=== PATIENT | female | born 1995 | race American Indian/Alaskan Native ===

== ENCOUNTER 2018-09-25 11:33 | Emergency (ER) | payer MEDICAID ==
[2018-09-25 11:41] VITALS: BMI 38.7
[2018-09-25 11:45] VITALS: RESP 18
[2018-09-25] MEDS ORDERED: Sodium Chloride 0.9% 1,000 ML IV STA (11:49)
--- NOTE | 2018-09-25 12:35 | ED PDOC ---
Arrival/HPI - General Chief Complaint: Back Pain Time Seen by Provider: 09/25/18 11:36 Historian: Patient - History of Present Illness Narrative History of Present Illness (Text): 09/25/18 12:31 23-year-old female presents today with right sided flank pain since yesterday. Patient denies abdominal pain. No nausea or vomiting. She denies dizziness or weakness. Patient denies fevers or chills. Denies dysuria or urinary frequency. Patient states she has right sided back pain going into the buttocks yesterday. Patient states she took a naproxen yesterday which improved the pain into the buttocks but she still had the pain in the right flank. Patient states her last menstrual period was August 24. Patient denies vaginal bleeding or vaginal discharge. Patient denies chest pain or shortness of breath. No medications were taken for pain at home today. Time/Duration: Other (1 day) Symptom Onset: Gradual Symptom Course: Improving Quality: Aching Severity Level: Moderate Past Medical History - Provider Review Nursing Documentation Reviewed: Yes - Travel History Have you recently traveled outside [place] w/in the past 3 mons?: No - Infectious Disease Hx of Infectious Diseases: None - Psychiatric Hx Substance Use: No - Anesthesia Hx Anesthesia: No Family/Social History - Physician Review Nursing Documentation Reviewed: Yes Family/Social History: Unknown Family HX Smoking Status: Never Smoked Hx Alcohol Use: No Hx Substance Use: No Allergies/Home Meds Allergies/Adverse Reactions: Allergies No Known Allergies Allergy (Verified 09/25/18 11:41) Review of Systems - Review of Systems Constitutional: absent: Fatigue, Fevers Respiratory: absent: SOB, Cough Cardiovascular: absent: Chest Pain, Palpitations Gastrointestinal: absent: Abdominal Pain, Constipation, Diarrhea, Nausea, Vomiting Genitourinary Female: absent: Dysuria, Frequency, Hematuria, Vaginal Bleeding, Vaginal Discharge Musculoskeletal: Back Pain. absent: Neck Pain Skin: absent: Rash, Pruritis Neurological: absent: Headache, Dizziness Psychiatric: absent: Anxiety, Depression Physical Exam Vital Signs Reviewed: Yes Vital Signs Temp Pulse Resp BP Pulse Ox 09/25/18 11:44 98.1 F 116 H 18 128/79 97 Temperature: Afebrile Blood Pressure: Normal Pulse: Tachycardic Respiratory Rate: Normal Appearance: Positive for: Well-Appearing, Non-Toxic, Comfortable Pain Distress: None Mental Status: Positive for: Alert and Oriented X 3 - Systems Exam Head: Present: Atraumatic Mouth: Present: Moist Mucous Membranes Neck: Present: Normal Range of Motion Respiratory/Chest: Present: Clear to Auscultation, Good Air Exchange. No: Respiratory Distress, Accessory Muscle Use Cardiovascular: Present: Regular Rate and Rhythm, Normal S1, S2. No: Murmurs Abdomen: No: Tenderness, Distention, Peritoneal Signs, Rebound, Guarding Back: Present: Normal Inspection, Paraspinal Tenderness (+ minimal right sided paraspinal tenderness). No: CVA Tenderness, Midline Tenderness Upper Extremity: Present: Normal Inspection, Normal ROM Lower Extremity: Present: Normal ROM Neurological: Present: GCS=15, Speech Normal Skin: Present: Warm, Dry, Normal Color. No: Rashes Psychiatric: Present: Alert, Oriented x 3 Medical Decision Making ED Course and Treatment: 09/25/18 12:37 23yr old female with right sided back pain radiating into the buttock since yesterday. took naproxen for pain yesterday. pt was found to have + test. i advised patient of + test. advised her that naproxen, motrin, advil, aleve are not safe in . tylenol given for pain. cbc: wbc:12 cmp: wnl beta 3230 type/screen; UA: no blood, no leukocytes, + bacteria Ultrasound: FINDINGS: UTERUS: Measures 4.6 x 6.6 x 8.5 cm. Normal in size and appearance. No fibroid or other mass lesion seen. ENDOMETRIUM: Gestational sac measures 7.5 mm in diameter. Below the threshold for calculation of a reliable gestational age No yolk sac or pole identified. CERVIX: No cervical abnormality identified. RIGHT OVARY: Measures 2.4 x 2.5 x 3.2 cm. No solid mass. Normal flow. LEFT OVARY: Measures 2.2 x 3.1 x 4.4 cm. No solid mass. Normal flow. Simple cyst 1.6 x 2.8 x 2.2 FREE FLUID: No significant free fluid noted. OTHER FINDINGS: None. IMPRESSION: Early gestational sac below threshold for calculation of a reliable gestational age. No visible yolk sac or pole. Simple cyst left adnexa. pt seen and evaluated by dr. martin. Discussed all the results the patient. advised ONLY tylenol for pain. advised massage back, back stretches. NO motrin, advil, aleve, naproxen. pt feeling better after medications; back pain reproducible, most likely muscular advised f/u with the shank scourer within the next 2 days. advised immediate return if symptoms worsen,persist or if new symptoms develop. Patient verbalizes understanding of discharge instructions and need for immediate followup. all aspects of this case were discussed the attending of record. Impression: back pain, + test Tylenol every 4 hours as needed for pain keflex; 1 tablet twice daily x 7 days. Increase fluids Followup with the process control programmer within the next 2 days Return immediately if symptoms worsen persist or if new symptoms develop: High fevers, heavy bleeding, severe abdominal pain, vomiting, diarrhea, dizziness or weakness or any other concerning symptoms develop. Reassessment Condition: Re-examined, Improved - RAD Interpretation Radiology Orders: 09/25/18 12:02 TRANSVAGINAL [US] Stat - Medication Orders Current Medication Orders: Sodium Chloride (Sodium Chloride 0.9%) 1,000 mls @ 999 mls/hr IV .Q1H1M STA Stop: 09/25/18 12:49 Last Admin: 09/25/18 12:22 Dose: 999 mls/hr eMAR Start Stop Document 09/25/18 12:22 [facility] (Rec: 09/25/18 12:23 [email or web address]) Intravenous Solution Start Date 09/25/18 Start Time 12:23 End Date 09/25/18 End time 13:23 Total Infusion Time 60 Discontinued Medications Acetaminophen (Tylenol 325mg Tab) 975 mg PO STAT STA Stop: 09/25/18 12:03 Last Admin: 09/25/18 12:28 Dose: 975 mg MAR Pain/Vitals Document 09/25/18 12:28 [facility] (Rec: 09/25/18 12:28 [email or web address]) Pain Reassessment Is This A Pain ReAssessment? No Disposition/Present on Arrival - Present on Arrival Any Indicators Present on Arrival: No History of DVT/PE: No History of Uncontrolled Diabetes: No Urinary Catheter: No History of Decub. Ulcer: No History Surgical Site Infection Following: None - Disposition Have Diagnosis and Disposition been Completed?: Yes Diagnosis: Back pain, test positive Disposition: HOME/ ROUTINE Disposition Time: 13:00 Patient Plan: Discharge Condition: GOOD Additional Instructions: Tylenol every 4 hours as needed for pain keflex; 1 tablet twice daily x 7 days. Increase fluids Followup with the process control programmer within the next 2 days Return immediately if symptoms worsen persist or if new symptoms develop: High fevers, heavy bleeding, severe abdominal pain, vomiting, diarrhea, dizziness or weakness or any other concerning symptoms develop. take vitamins daily. Prescriptions: Cephalexin [Keflex] 500 mg PO BID #14 capsule Pnv No.95/Ferrous Fum/Folic AC [ Tablet] 1 each PO DAILY #30 tablet Referrals: Lian Jiang MD [Primary Care Provider] - Follow up with primary Dasyi Snow MD [Staff Provider] - Follow up with primary Xochilt Vu MD [Medical Doctor] - [facility] [Outside] - Follow up with primary [facility] [Outside] - Follow up with primary Forms: [employer] (K[place]z), WORK NOTE
[2018-09-25 12:45] LABS: URINE APPEARANCE TURBID (CLEAR); URINE BILIRUBIN NEGATIVE (NEGATIVE); URINE BLOOD NEGATIVE (NEGATIVE); URINE COLOR YELLOW (YELLOW); URINE GLUCOSE (UA) NEGATIVE (NEGATIVE); URINE LEUKOCYTE ESTERASE NEGATIVE Leu/uL (NEGATIVE); URINE PROTEIN TRACE mg/dL (<30 mg/dL); URINE UROBILINOGEN 0.2 E.U./dL (<1 E.U./dL)
[2018-09-25 12:47] LABS: BASO # 0.02 K/mm3 (0.0-2.0); BASO % 0.2 % (0.0-3.0); EOS # 0.1 (0.0-0.7); EOS % 0.4 % (1.5-5.0); GRAN # 7.95 (1.4-6.5); GRAN % 66.4 % (50.0-68.0); HEMOGLOBIN 12.2 g/dL (12.0-16.0); LYMPH # 2.8 (1.2-3.4); LYMPH % 23.7 % (22.0-35.0); MEAN CELL VOLUME 91.1 fl (80.0-105.0); MEAN CORPUSCULAR HEMOGLOBIN 30.1 pg (25.0-35.0); MEAN CORPUSCULAR HGB CONC 33.1 g/dl (31.0-37.0); MEAN PLATELET VOLUME 10.2 fl (7.0-11.0); MONO # 1.1 (0.1-0.6); MONO % 9.3 % (1.0-6.0); RBC 4.05 10^6/uL (3.5-6.1); RED CELL DISTRIBUTION WIDTH 13.7 % (11.5-14.5)
[2018-09-25 12:51] LABS: ALB/GLOB RATIO 1.2 (1.1-1.8); ALBUMIN 4.6 g/dL (3.0-4.8); ALT/SGPT 21 U/L (7-56); AST/SGOT 25 U/L (14-36); BLOOD UREA NITROGEN 7 mg/dL (7-21); CALCIUM 9.8 mg/dL (8.4-10.5); GFR NON-AFRICAN AMERICAN > 60; LIPASE 35 U/L (23-300)
[2018-09-25 12:52] LABS: URINE RBC NEGATIVE /hpf (0-2); URINE WBC 0 - 2 /hpf (0-6)
[2018-09-25 12:53] LABS: URINE BACTERIA TRACE (NEG); URINE EPITHELIAL CELLS MANY /hpf (0-5)
[2018-09-25 14:07] VITALS: O2SAT 98
--- NOTE | 2018-09-25 14:23 | US ---
Date of service: 09/25/2018 HISTORY: back pain, + test COMPARISON: None available. TECHNIQUE: Transvaginal only. Real -time technique with 2D, duplex and color Doppler FINDINGS: UTERUS: Measures 4.6 x 6.6 x 8.5 cm. Normal in size and appearance. No fibroid or other mass lesion seen. ENDOMETRIUM: Gestational sac measures 7.5 mm in diameter. Below the threshold for calculation of a reliable gestational age No yolk sac or pole identified. CERVIX: No cervical abnormality identified. RIGHT OVARY: Measures 2.4 x 2.5 x 3.2 cm. No solid mass. Normal flow. LEFT OVARY: Measures 2.2 x 3.1 x 4.4 cm. No solid mass. Normal flow. Simple cyst 1.6 x 2.8 x 2.2 FREE FLUID: No significant free fluid noted. OTHER FINDINGS: None. IMPRESSION: Early gestational sac below threshold for calculation of a reliable gestational age. No visible yolk sac or pole. Simple cyst left adnexa.
[2018-09-25 15:14] VITALS: BP 133/78; PULSE 98; TEMP 98.9
== END 2018-09-25 15:14 | disposition home or self-care (01) ==
LOC: ED 11:33
DX: M54.9 Dorsalgia, unspecified (principal); Z32.01 Encounter for pregnancy test, result positive
CPT/HCPCS: 76817; 80053; 81001; 83690; 84702; 85025; 86850; 86900; 96360; 99284; J7030